=== PATIENT | female | born 1935 | race Caucasian/White ===

== ENCOUNTER 2018-11-06 21:14 | Emergency (ER) | payer MEDICARE ==
[2018-11-06 21:27] VITALS: BP 119/69
[2018-11-06] MEDS ORDERED: Tetan/Diph/Pertus SYR(Tdap)* 0.5 ML SYR(BOOSTRIX) use SYR IM ONE (21:39)
[2018-11-06] MEDS ORDERED: Amoxicillin/Clavulanate TAB* 875 MG PO ONE ×2 (21:39→21:40)
--- NOTE | 2018-11-06 21:43 | UC ---
Bite Injury/Animal HPI - HPI Summary HPI Summary: 83-year-old woman comes in with a chief complaint of a cat bite to the left forearm. This happened just prior to arrival. Wound was cleaned by the patient 's . Patient's not sure when her last tetanus was. No pain with range of motion bleeding is stopped with direct pressure. No loss of sensation or strength or range of motion. The got is the patient's family got who they believe is up-to-date on all immunizations and only stays in the house and does not go outside and has been behaving his normal self. - History of Current Complaint Chief Complaint: UCBiteInjury Stated Complaint: CAT BITE Time Seen by Provider: 11/06/18 21:31 Pain Intensity: 0 - Allergies/Home Medications Allergies/Adverse Reactions: Allergies Allergy/AdvReac Type Severity Reaction Status Date / Time Sulfa (Sulfonamide Allergy Unknown Verified 11/06/18 21:27 Antibiotics) Reaction Details Home Medications: Home Medications Apixaban* [Eliquis*] 2.5 mg PO BID 11/06/18 [History Confirmed 11/06/18] Atorvastatin* [Lipitor*] 10 mg PO 1700 11/06/18 [History Confirmed 11/06/18] Bisoprolol TAB* [Zebeta TAB*] 2.5 mg PO DAILY 11/06/18 [History Confirmed ] Diltiazem XR EXTEND Releas(NF) [Cartia XR (NF)] 120 mg PO DAILY 11/06/18 [ History Confirmed 11/06/18] FLUoxetine CAP* [PROzac CAP*] 40 mg PO DAILY 11/06/18 [History Confirmed ] LORazepam TAB(*) [Ativan 0.5 MG TAB (*)] 0.5 mg PO Q4H PRN 11/06/18 [History Confirmed 11/06/18] Spironolactone TAB* [Aldactone TAB*] 25 mg PO DAILY 11/06/18 [History Confirmed 11/06/18] Torsemide TAB* [Demadex*] 10 mg PO DAILY 11/06/18 [History Confirmed 11/06/18] busPIRone TAB* [Buspar TAB*] 5 mg PO TID 11/06/18 [History Confirmed 11/06/18] PMH/Surg Hx/FS Hx/Imm Hx Previously Healthy: Yes Endocrine History: Dyslipidemia - Surgical History Surgical History: Yes Surgery Procedure, Year, and Place: 2 c-sec, right carotid artery repair - Family History Known Family History: Positive: Non-Contributory - Social History Alcohol Use: None Substance Use Type: None Smoking Status (MU): Never Smoked Tobacco - Immunization History Most Recent Tetanus Shot: unknown Review of Systems All Other Systems Reviewed And Are Negative: Yes Constitutional: Positive: Negative Skin: Positive: Other - SEE HPI Eyes: Positive: Negative ENT: Positive: Negative Respiratory: Positive: Negative Cardiovascular: Positive: Negative Gastrointestinal: Positive: Negative Motor: Positive: Negative Neurovascular: Positive: Negative Musculoskeletal: Positive: Negative Neurological: Positive: Negative Psychological: Positive: Negative Is Patient Immunocompromised?: No Physical Exam Triage Information Reviewed: Yes Appearance: Well-Appearing, No Pain Distress, Well-Nourished Vital Signs: Initial Vital Signs Temp 98.4 F 11/06/18 21:21 Pulse 74 11/06/18 21:21 Resp 16 11/06/18 21:21 BP 119/69 11/06/18 21:21 Pulse Ox 99 11/06/18 21:21 Vital Signs Reviewed: Yes Eye Exam: Normal Eyes: Positive: Conjunctiva Clear Neck: Positive: Supple Respiratory: Positive: No respiratory distress Musculoskeletal: Positive: Strength Intact, ROM Intact, Other: - Fingers wrists and elbow have full range of motion full-strength patient denies any pain with range of motion. Neurological: Positive: Alert, Muscle Tone Normal Psychological: Positive: Age Appropriate Behavior Skin: Positive: Other - Left forearm has a 1 cm subcutaneous laceration with the edges closely approximated without any bleeding. Normal capillary refill no sensation deficit. Bite Injury Course/Dx - Course Course Of Treatment: Time going to treat with Augmentin 875 mg by mouth twice a day for a total of 7 days for prophylaxis. Patient received her T tap here in clinic. Patient full range of motion full-strength on examination. The patient and her know that if she worsened had any fevers any apparent infection and the need to the emergency room for further evaluation and care. - Differential Dx/Diagnosis Provider Diagnosis: Cat bite of left upper arm Discharge ED - Sign-Out/Discharge Documenting (check all that apply): Patient Departure All imaging exams completed and their final reports reviewed: No Studies - Discharge Plan Condition: Stable Disposition: HOME Prescriptions: Amoxicillin/Clavulanate TAB* [Augmentin TAB 875*] 875 mg PO BID #12 tab Patient Education Materials: Animal Bite (ED) Referrals: Josey Macdonald MD [Primary Care Provider] - Additional Instructions: FOLLOW UP WITH YOUR DOCTOR IF NOT COMPLETELY IMPROVED. YOU RECEIVED THE TDAP (TETANUS AND DIPTHERIA) IMMUNIZATION TODAY. GO TO THE EMERGENCY DEPARTMENT IF YOUR CONDITION WORSENS; SIGNS OF INFECTION, FEVER, YOU FEEL ILL OR ANY QUESTIONS OR CONCERNS. - Billing Disposition and Condition Condition: STABLE Disposition: Home
== END 2018-11-06 22:05 | disposition home or self-care (01) ==
LOC: UCEAST 21:14
DX: S51.852A Open bite of left forearm, initial encounter (principal); W55.01XA Bitten by cat, initial encounter; Y92.9 Unspecified place or not applicable; E78.5 Hyperlipidemia, unspecified; Z88.2 Allergy status to sulfonamides; Z23 Encounter for immunization
CPT/HCPCS: 90471; 90715; 99212; A9270-GY; G0463

== ENCOUNTER 2022-05-10 14:02 | Observation (INO) ==
[2022-05-10] MEDS ORDERED: NS 0.9% 1000 ml BAG 1,000 ML IV ONE (14:28)
[2022-05-10 15:21] LABS: ABS Lymphocytes 1.2 10^3/ul (1.0-4.8); ABS Monocytes 0.9 10^3/ul (0-0.8); ABS Neutrophils 4.4 10^3/ul (1.5-7.7); Eosinophil % 0.6 %; Hematocrit 37 % (35-47); Hemoglobin 12.7 g/dL (12.0-16.0); Lymphocyte % 18.2 %; Mean Corpuscular HGB Conc 34 g/dL (31-36); Mean Corpuscular Hemoglobin 33 pg (27-31); Mean Corpuscular Volume 97 fL (80-97); Mean Platelet Volume 7.9 fL (7.4-10.4); Nucleated Red Blood Cells % 0.1; Platelet Count 162 10^3/uL (150-450); Red Blood Count 3.88 10^6 /uL (3.70-4.87); Red Cell Distribution Width 16 % (10-15); White Blood Count 6.6 10^3/uL (3.5-10.8)
[2022-05-10 16:07] LABS: Albumin 3.6 g/dL (3.2-5.2); Albumin/Globulin Ratio 1.3 (1-3); Creatinine, Serum 1.26 mg/dL (0.51-0.95); Globulin 2.8 g/dL (2-4); Magnesium 2.1 mg/dL (1.9-2.7); Potassium 4.1 mmol/L (3.5-5.0); Total Bilirubin 4.5 mg/dL (0.2-1.0); Total Protein 6.4 g/dL (6.4-8.9); eGFR CKD-EPI 41.3 (>60)
[2022-05-10 16:19] LABS: TSH Ultra Thyroid Stim Horm 3.76 mcIU/mL (0.34-5.60)
[2022-05-10 16:47] LABS: High Sensitivity Troponin 1 Hr 29 pg/mL (<15)
[2022-05-10] MEDS ORDERED: Polyethylene Glycol 3350 17 GM PACKET PO PRN (19:45)
[2022-05-10] MEDS ORDERED: Senna TAB 8.6 mg TAB PO PRN (19:45)
[2022-05-10] MEDS ORDERED: Ondansetron ODT 4 mg TAB 4 MG TAB SL PRN (19:45)
[2022-05-10] MEDS ORDERED: Morphine ORAL CONCENTRATE 5 MG/0.25 ML ORAL.SYRIN PO PRN (19:45)
[2022-05-11 05:59] VITALS: BP 112/65
== END 2022-05-11 15:00 | disposition home or self-care (01) ==
LOC: ED 14:02 → EDHOLD 14:02 → MED 05-11 01:43
PROVIDERS: ADMIT Family Medicine; ATTEND Family Medicine